=== PATIENT | male | born 1975 | race American Indian/Alaskan Native ===

== ENCOUNTER 2017-02-06 18:43 | Emergency (ER) | payer OTHER, MEDICAID ==
[2017-02-06 18:54] VITALS: BP 114/77
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
[2017-02-06] MEDS ORDERED: MOTRIN PO ONE (19:28)
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
== END 2017-02-06 21:10 | disposition home or self-care (01) ==
LOC: ED 18:43
DX: S00.03XA Contusion of scalp, initial encounter (principal); R51 Headache; S62.666A Nondisplaced fracture of distal phalanx of right little finger, initial encounter for closed fracture; V49.59XA Passenger injured in collision with other motor vehicles in traffic accident, initial encounter; Y93.9 Activity, unspecified; Y92.9 Unspecified place or not applicable; Y99.9 Unspecified external cause status
CPT/HCPCS: 70450